=== PATIENT | female | born 1970 | race Caucasian/White ===

== ENCOUNTER → 2016-11-30 | Outpatient (CLI) | payer BC | END | disposition home or self-care (01) | LOC: CFH 09:12 | PROVIDERS: ATTEND Obstetrics & Gynecology | DX: Z12.31 Encounter for screening mammogram for malignant neoplasm of breast (principal) | CPT/HCPCS: G0202 ==

== ENCOUNTER → 2017-11-18 | Outpatient (CLI) | payer BC | END | disposition home or self-care (01) | LOC: CFH 09:12 | PROVIDERS: ATTEND Obstetrics & Gynecology | DX: Z12.31 Encounter for screening mammogram for malignant neoplasm of breast (principal) | CPT/HCPCS: 77063; 77067 ==

== ENCOUNTER 2020-04-01 09:35 | Emergency (ER) | payer BC ==
[~2020-04-01] VITALS: Ht 154.9 cm; Wt 63.2 kg
--- NOTE | 2020-04-01 10:10 | NUR ---
PT AMBULATED TO THE ROOM FROM THE [facility] W/ A STEADY GAIT AT THIS TIME.
--- NOTE | 2020-04-01 10:22 | NUR ---
THIS IS A 49 YO F W/ C/O LT SHOULDER/BACK PAIN DESCRIBED PINCHING THAT RADIATES DOWN INTO LT SIDE OF CHEST. PT REPORTS PAIN WOKE HER THIS MORNING AT 0530. 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 PT DENIES MEDICAL HX. PT RESTING ON GURNEY W/ CALL LIGHT IN REACH AND FAMILY AT BEDSIDE. CONNECTED TO ALL MONITORING, VSS, NADN. AWAITING ED EVAL.
--- NOTE | 2020-04-01 10:32 | NUR ---
LAB IN ROOM.
[2020-04-01 10:37] LABS: BASOPHILS # (AUTO) 0.03 x10^3/uL (0-0.1); BASOPHILS % (AUTO) 0 % (0-1); EOSINOPHILS # (AUTO) 0.04 x10^3/uL (0-0.4); EOSINOPHILS % (AUTO) 1 % (1-7); LYMPHOCYTES % (AUTO) 18 % (22-44); MD NO; MEAN CORPUSCULAR HEMOGLOBIN 30.4 pg (27.0-34.8); MEAN CORPUSCULAR HGB CONC 33.7 g/dL (32.4-35.8); MEAN PLATELET VOLUME 8.5 fL (7.4-10.4); MONOCYTES # (AUTO) 0.34 x10^3/uL (0.2-0.8); MONOCYTES % (AUTO) 4 % (2-9); NEUTROPHILS # (AUTO) 6.09 x10^3/uL (1.8-6.8); NEUTROPHILS % (AUTO) 77 % (42-75); PLATELET COUNT 243 x10^3/uL (130-400); RED CELL DISTRIBUTION WIDTH 12.7 % (9.6-15.2)
[2020-04-01 10:50] LABS: ALBUMIN 3.8 g/dL (3.4-5.0); ANION GAP 5 mmol/L (5-15); CALCIUM 9.2 mg/dL (8.5-10.1); CHLORIDE 110 mmol/L (98-107)
[2020-04-01 10:55] LABS: ALANINE AMINOTRANSFERASE 34 U/L (12-78); ALKALINE PHOSPHATASE 81 U/L (45-117); BILIRUBIN,TOTAL 0.3 mg/dL (0.2-1.0); CREATININE 0.94 mg/dL (0.55-1.02); TOTAL PROTEIN 7.8 g/dL (6.4-8.2); TROPONIN I < 0.015 ng/mL (0.000-0.045)
--- NOTE | 2020-04-01 11:08 | NUR ---
ALL TESTS RESULTED. PT IS UP FOR RECHECK AT THIS TIME.
[2020-04-01 11:14] VITALS: BP 114/73
--- NOTE | 2020-04-01 11:16 | NUR ---
AT BEDSIDE FOR RECHECK.
[2020-04-01] MEDS ORDERED: KETOROLAC 60 MG/2 ML ONE (11:44)
--- NOTE | 2020-04-01 11:45 | NUR ---
PT AMBULATED TO THE BR W/ A STEADY GAIT.
[2020-04-01] MEDS ORDERED: KETOROLAC 30 MG/1 ML IM ONE (12:00)
--- NOTE | 2020-04-01 12:17 | NUR ---
Patient given discharge instructions and they have confirmed that they understand the instructions. Patient ambulatory with steady gait.
== END 2020-04-01 12:18 | disposition home or self-care (01) ==
LOC: ED 11:02
DX: M94.0 Chondrocostal junction syndrome [Tietze] (principal); R94.31 Abnormal electrocardiogram [ECG] [EKG]; R20.0 Anesthesia of skin
CPT/HCPCS: 36415; 71045; 80053; 83690; 84484; 85025; 93005; 96372; 99285; J1885

== ENCOUNTER → 2020-04-15 | Outpatient (CLI) | payer BC | END | disposition home or self-care (01) | LOC: EDSTATUS 03-28 15:30 → CFH 08:20 | PROVIDERS: ATTEND Obstetrics & Gynecology | DX: Z12.31 Encounter for screening mammogram for malignant neoplasm of breast (principal) | CPT/HCPCS: 77063; 77067 ==

== ENCOUNTER → 2021-04-18 | Outpatient (CLI) | payer BC | END | disposition home or self-care (01) | LOC: CFH 08:12 | PROVIDERS: ATTEND Obstetrics & Gynecology | DX: Z12.31 Encounter for screening mammogram for malignant neoplasm of breast (principal) | CPT/HCPCS: 77063; 77067 ==